=== PATIENT | female | born 1940 | race Caucasian/White ===

== ENCOUNTER 2017-07-21 15:00 | Outpatient (RCR) ==
--- NOTE | 2017-07-07 15:01 | RS.OPPTEV2 ---
Date of Note: 07/06/17 Visit #: 1 Date of Evaluation: 07/06/17 Payer Source: MEDICARE Surgery Performed?: No Treatment Diagnosis: LBP, fibromyalgia History of Condition/Mechanism of Injury:: pt with long history of fibromyalgia with diffuse pain, occasionally in her low back. Prior Level of Function.....Patient was independent with: ADL's, Self Care, Ambulation/Mobility, Community Integration/Access Functional Limitations: Sleep, Reaching, Pushing, Pulling, Lifting, Carrying, Standing, Bending, Squatting, Ambulation, Community Access/Integration Current Subjective/complaints:: pt c/o diffuse pain "all over" due to fibromyalgia. pt reports increased pain with standing and walking. pt states she feels her balance is also affected. Treatment Side (optional): N/A *Precautions: n/a Medical History Medical History: Hypertension, Arthritis Medical History Comments:: high cholesterol Surgical History: Knee Replacement, Cholecystectomy, Hysterectomy Smoking Status: Never smoker Hx Home Medications: oxycodone, gabapentin, paxil Patient's Goals: decrease pain, improve balance Pain Assessment - Pain Description Pain Location: " all over" Pain Description: Aching Current Pain Intensity: 5/10 Worst Pain Intensity: 8/10 Functional Outcome Measure Dynamic Gait: 13 (46%) - G Codes & Severity Modifier G Codes & Modifier: mobility current CK. mobility goal CI Source of G Code score: dynamic gait index Observation - Observation Posture: Forward Head, Rounded Shoulders, Increased Thoracic Kyphosis Gait - Gait Pattern General Gait Pattern Observation: Crouched Gait, Decrease Stride Lngth (R), Decrease Stride Lngth (L) Gait Comments: pt amb with flexed posture, decreased step length, as well as occasional scissoring General Range of Motion: ROM WFL's all 4 extrs. Cervical ROM WFL's Muscle Strength: BUE shld flex 4/5, elbow flex/ext 4+/5, mattress renovator equal. BLe hip flex 4/5, knee flex/ext 4+/5, ankle DF/PF 5/5 - ROM Lumbar Flexion: Hand reach to Mid-Shins Sidebending to Left: Reach to Lateral Joint Line Sidebending to Right: Reach to Lateral Joint Line - Special Tests SLR Test: Negative Left, Negative Right Seated Dural Stretch Test: Negative Left, Negative Right SI Joint Compression: Negative Palpation Palpation Findings: Tenderness Comments:: tenderness lumbar paraspinal. Tightness BLE hamstrings and piriformis Sensation - Sensation Right Upper Extremity: Intact/Normal Left Upper Extremity: Intact/Normal Right Lower Extremity: Intact/Normal Left Lower Extremity: Intact/Normal Comments: equal and intact to light touch Balance - Sitting Balance Static Sitting Balance: Good Dynamic Sitting Balance: Good - Standing Balance Static Standing Balance: Good Dynamic Standing Balance: Fair - Comments Balance Assessment Comments: TUG score 23 secs. Dynamic gait index Interventions - Exercise/Activities/Manual Therapy Exercises/Activities: pt received BLE hamstring stretching, performed isometric hip add, LAQ, seated hip flex, standing wall angels for posture Manual Therapy: n/a HOME EXERCISE PROGRAM: pt given written HEP including isometric hip add, LAQ, seated hip flex, corner stretch, hamstring stretch, standing wall angels for posture - Charges Timed Code Treatment Minutes: 58 Total Treatment Time: 62 Procedures billed for this date of service:: eval med EVALUATION COMPLEXITY LEVEL EVALUATION COMPLEXITY LEVEL: HISTORY: Medium, EXAM OF BODY SYSTEMS: Medium, CLINICAL PRESENTATION: Medium, CLINICAL DECISION MAKING: Medium Assessment Assessment: pt presents with pain, decreased balance, decreased strength limiting functional mobility. Patient Education: Home Exercise Program, Education of Plan of Care Rehab Potential: Good Short Term Goals Goal #1: pt decrease pain < 4/10 Goal to be met by: 07/14/17 Goal #2: Pt with improved dyn stand balance as noted by TUG < 21 secs Goal to be met by: 07/14/17 Goal #3: pt with decreased BLE hamstring tightness as noted by SLR 45 Goal to be met by: 07/14/17 Goal #4: pt amb in dept with no LOB amb figure 8 Goal to be met by: 07/14/17 Retirement Goals Goal #1: pt rate pain < 3/10 with activity Goal to be met by: 07/28/17 Goal #2: pt with improved strength BLE 4+ to 5/5 Goal to be met by: 07/28/17 Goal #3: pt with improved dyn gait index score 20/24 Goal to be met by: 07/28/17 Goal #4: pt independent with HEP Goal to be met by: 07/28/17 Plan - Treatment to be Provided Procedures: Therapeutic Exercises, Therapeutic Activity, Neuromuscular Rehab, Manual Therapy, Massage, Patient Education Modalities: Electrical Stimulation, Ultrasound/Phonophoresis, Class IV Laser, Cryotherapy, Hot Packs - Treatment Plan Frequency: 2 X week Duration: 4 weeks ORDER # VISITS AND/OR THROUGH DATE: 07/28/17 - Treatment Code (1) Fibromyalgia Code(s): M79.7 - FIBROMYALGIA (2) Low back pain Code(s): M54.5 - LOW BACK PAIN Qualifiers: Chronicity: chronic Back pain laterality: unspecified Sciatica presence: without sciatica Qualified Code(s): M54.5 - Low back pain; G89.29 - Other chronic pain; G89.29 - Other chronic pain (3) Muscle weakness Code(s): M62.81 - MUSCLE WEAKNESS (GENERALIZED) (4) Gait abnormality Code(s): R26.9 - UNSPECIFIED ABNORMALITIES OF GAIT AND MOBILITY
--- NOTE | 2017-07-11 16:44 | RS.OPPTDN ---
Subjective Date of Note: 07/11/17 Visit #: 2 Date of Evaluation: 07/06/17 Payer Source: MEDICARE Treatment Diagnosis: LBP, fibromyalgia Current Subjective/complaints:: Patient reports she she has pain "all over." Then when asked how high her pain is she states she doesn't have any pain. Patient agrees to work on basic HEP and walk twice a day. She has a goal of being able to tolerate a trip home to [place] to visit family. *Precautions: n/a Pain Assessment - Pain Description Pain Location: Pain in upper, mid, lowback, and lower extremities. Current Pain Intensity: no pain Other Comments regarding Pain:: States she has pain all over, but later states she has no pain. Interventions - Exercise/Activities/Manual Therapy Exercises/Activities: Assisted stretching of the bilateral hamstrings, SKTC, and trunk rotation. Isometric hip add, isometric hip flexion. Alt hip flexion. Pelvic tilts. In sitting, LAQ, seated hip flex, and red theraband for scap retraction. Patient education of HEP, walking program, and basic activities to increase her energy level. Total minutes of Exercise: 38mins Manual Therapy: n/a HOME EXERCISE PROGRAM: pt given written HEP including isometric hip add, LAQ, seated hip flex, corner stretch, hamstring stretch, standing wall angels for posture, isometric hip add, isometric hip flexion, pelvic tilts. Red theraband for scapula retraction. - Charges Timed Code Treatment Minutes: 38mins Total Treatment Time: 45mins Procedures billed for this date of service:: EX3 Assessment: Patient attentive to instruction and becomes more motivated to work on HEP. Patient Education: Education of diagnosis, Body/Joint mechanics, Home Exercise Program, Home Safety, Activity Modification Patient demonstrates compliance with HEP?: Yes Short Term Goals Goal #1: pt decrease pain < 4/10 Goal to be met by: 07/14/17 Goal #2: Pt with improved dyn stand balance as noted by TUG < 21 secs Goal to be met by: 07/14/17 Goal #3: pt with decreased BLE hamstring tightness as noted by SLR 45 Goal to be met by: 07/14/17 Goal #4: pt amb in dept with no LOB amb figure 8 Goal to be met by: 07/14/17 [facility] Goals Goal #1: pt rate pain < 3/10 with activity Goal to be met by: 07/28/17 Goal #2: pt with improved strength BLE 4+ to 5/5 Goal to be met by: 07/28/17 Goal #3: pt with improved dyn gait index score 20/24 Goal to be met by: 07/28/17 Goal #4: pt independent with HEP Goal to be met by: 07/28/17 Plan PLAN OF CARE EXPIRES ON:: 07/28/17 ORDER # VISITS AND/OR THROUGH DATE: 07/28/17 PLAN: Progress exercise and walking program to increase patient functional activity level.
--- NOTE | 2017-07-13 16:36 | RS.OPPTDN ---
Subjective Date of Note: 07/13/17 Visit #: 3 Date of Evaluation: 07/06/17 Payer Source: MEDICARE Treatment Diagnosis: LBP, fibromyalgia Current Subjective/complaints:: Patient reports she is working on basic HEP. Reports LBP today but states she feels better after exercise. *Precautions: n/a Pain Assessment - Pain Description Pain Location: Lowback Current Pain Intensity: mod prior to and mild following exercise Interventions - Exercise/Activities/Manual Therapy Exercises/Activities: Assisted stretching of the bilateral hamstrings, SKTC, and trunk rotation. Isometric hip add, isometric hip flexion. Isometric ankle iversion with ball between ankles. Alt hip flexion. Pelvic tilts. In sitting, red theraband for scap retraction, multiple reps. Discussed patient education of body mechanics and need to work on trunk strengthening. Total minutes of Exercise: 30mins Manual Therapy: n/a HOME EXERCISE PROGRAM: pt given written HEP including isometric hip add, LAQ, seated hip flex, corner stretch, hamstring stretch, standing wall angels for posture, isometric hip add, isometric hip flexion, pelvic tilts. Red theraband for scapula retraction. - Charges Timed Code Treatment Minutes: 30mins Total Treatment Time: 35mins Procedures billed for this date of service:: EX2 Assessment: Patient seems to be motivated to work on HEP. Patient Education: Education of diagnosis, Body/Joint mechanics, Home Exercise Program, Home Safety, Activity Modification Patient demonstrates compliance with HEP?: Yes Short Term Goals Goal #1: pt decrease pain < 4/10 Goal to be met by: 07/14/17 Goal #2: Pt with improved dyn stand balance as noted by TUG < 21 secs Goal to be met by: 07/14/17 Goal #3: pt with decreased BLE hamstring tightness as noted by SLR 45 Goal to be met by: 07/14/17 Progress towards Goal:: Progressing Goal #4: pt amb in dept with no LOB amb figure 8 Goal to be met by: 07/14/17 Jail Goals Goal #1: pt rate pain < 3/10 with activity Goal to be met by: 07/28/17 Goal #2: pt with improved strength BLE 4+ to 5/5 Goal to be met by: 07/28/17 Goal #3: pt with improved dyn gait index score 20/24 Goal to be met by: 07/28/17 Goal #4: pt independent with HEP Goal to be met by: 07/28/17 Progress towards goal: Progressing Plan PLAN OF CARE EXPIRES ON:: 07/28/17 ORDER # VISITS AND/OR THROUGH DATE: 07/28/17 PLAN: Progress exercise to increase functional activity level.
--- NOTE | 2017-07-19 16:31 | RS.OPPTDN ---
Subjective Date of Note: 07/19/17 Visit #: 4 Date of Evaluation: 07/06/17 Payer Source: MEDICARE Treatment Diagnosis: LBP, fibromyalgia Current Subjective/complaints:: Patient reports she is working on HEP and feels a little better. States she has not progressed to walking outside due to bad weather. Reports little to no pain following exercise today. *Precautions: n/a Pain Assessment - Pain Description Pain Location: neck, upper/mid/lowback, LE's Current Pain Intensity: mild to mod prior to EX, no pain after Interventions - Exercise/Activities/Manual Therapy Exercises/Activities: Assisted stretching of the bilateral hamstrings, SKTC, and trunk rotation. Isometric hip add, isometric hip flexion. Isometric ankle iversion with ball between ankles. Alt hip flexion added 2# to each ankle. SAQ 2 #. Pelvic tilts. In sitting, red theraband for scap retraction, multiple reps. Holding ball overhead while performing lateral trunk flexion. Discussed patient education of body mechanics and need to work on trunk strengthening. Total minutes of Exercise: 34mins Manual Therapy: n/a HOME EXERCISE PROGRAM: pt given written HEP including isometric hip add, LAQ, seated hip flex, corner stretch, hamstring stretch, standing wall angels for posture, isometric hip add, isometric hip flexion, pelvic tilts. Red theraband for scapula retraction. - Charges Timed Code Treatment Minutes: 34mins Total Treatment Time: 37mins Procedures billed for this date of service:: EX2 Assessment: Patient reporting some progress in pain and is actively working on HEP. Patient Education: Body/Joint mechanics, Home Exercise Program, Home Safety, Activity Modification Patient demonstrates compliance with HEP?: Yes Short Term Goals Goal #1: pt decrease pain < 4/10 Goal to be met by: 07/14/17 Progress towards Goal:: Progressing Goal #2: Pt with improved dyn stand balance as noted by TUG < 21 secs Goal to be met by: 07/14/17 Goal #3: pt with decreased BLE hamstring tightness as noted by SLR 45 Goal to be met by: 07/14/17 Progress towards Goal:: Progressing Goal #4: pt amb in dept with no LOB amb figure 8 Goal to be met by: 07/14/17 Shelter Goals Goal #1: pt rate pain < 3/10 with activity Goal to be met by: 07/28/17 Goal #2: pt with improved strength BLE 4+ to 5/5 Goal to be met by: 07/28/17 Goal #3: pt with improved dyn gait index score 20/24 Goal to be met by: 07/28/17 Goal #4: pt independent with HEP Goal to be met by: 07/28/17 Progress towards goal: Progressing Plan PLAN OF CARE EXPIRES ON:: 07/28/17 ORDER # VISITS AND/OR THROUGH DATE: 07/28/17 PLAN: Continue to progress exercise to increase strength and functional activity level.
--- NOTE | 2017-07-21 16:18 | RS.OPPTDN ---
Subjective Date of Note: 07/21/17 Visit #: 5 Date of Evaluation: 07/06/17 Payer Source: MEDICARE Treatment Diagnosis: LBP, fibromyalgia Current Subjective/complaints:: Patient reports her lowback pain is better. States she has had neck pain and saw her Chiropactor today. Following exercise today patient reports she feels better and has little to no pain in back and mild discomfort neck. *Precautions: n/a Pain Assessment - Pain Description Pain Location: Lowback and neck Current Pain Intensity: low level in lowback Other Comments regarding Pain:: mild neck pain following exercise. Interventions - Exercise/Activities/Manual Therapy Exercises/Activities: Assisted stretching of the bilateral hamstrings, SKTC, and trunk rotation. Isometric hip add, isometric hip flexion. Isometric ankle iversion with ball between ankles. Alt hip flexion, SLR, and SAQ no weights today. Isometric trunk rotation with ball between knees. Pelvic tilts. In sitting, red theraband for scap retraction, multiple reps. Holding ball overhead while performing lateral trunk flexion. Postural correction standing with back against wall with isometric cervical retraction and pressing UE's into wall. Corner anterior chest stretch. Discussed HEP and patient given copy of new exercises. Total minutes of Exercise: 35mins Manual Therapy: n/a HOME EXERCISE PROGRAM: pt given written HEP including isometric hip add, LAQ, seated hip flex, corner stretch, hamstring stretch, standing wall angels for posture, isometric hip add, isometric hip flexion, pelvic tilts. Red theraband for scapula retraction. - Charges Timed Code Treatment Minutes: 35mins Total Treatment Time: 40mins Procedures billed for this date of service:: EX2 Assessment: Patient reporting improvement in back pain and motivated to work on HEP. Patient Education: Body/Joint mechanics, Home Exercise Program, Home Safety, Activity Modification Patient demonstrates compliance with HEP?: Yes Short Term Goals Goal #1: pt decrease pain < 4/10 Goal to be met by: 07/14/17 Progress towards Goal:: Progressing Goal #2: Pt with improved dyn stand balance as noted by TUG < 21 secs Goal to be met by: 07/14/17 Progress towards Goal:: Progressing Goal #3: pt with decreased BLE hamstring tightness as noted by SLR 45 Goal to be met by: 07/14/17 Progress towards Goal:: Partially Met Goal #4: pt amb in dept with no LOB amb figure 8 Goal to be met by: 07/14/17 [facility] Goals Goal #1: pt rate pain < 3/10 with activity Goal to be met by: 07/28/17 Progress towards goal: Progressing Goal #2: pt with improved strength BLE 4+ to 5/5 Goal to be met by: 07/28/17 Progress towards goal: Progressing Goal #3: pt with improved dyn gait index score 20/24 Goal to be met by: 07/28/17 Goal #4: pt independent with HEP Goal to be met by: 07/28/17 Progress towards goal: Progressing Plan PLAN OF CARE EXPIRES ON:: 07/28/17 ORDER # VISITS AND/OR THROUGH DATE: 07/28/17 PLAN: Progress current POC to improve patients functional activity level.
--- NOTE | 2017-07-25 16:35 | RS.CXNS ---
Date of scheduled appointment: 07/25/17 Type: Cancel (Patient called to cancel. No reason given.)
== END 2017-07-29 ==
PROVIDERS: ATTEND Internal Medicine
DX: M54.5 Low back pain (principal); M79.7 Fibromyalgia